=== PATIENT | male | born 1995 | race American Indian/Alaskan Native ===

== ENCOUNTER 2018-08-22 13:37 | Emergency (ER) | payer MEDICAID, OTHER, SELFPAY ==
--- NOTE | 2018-08-22 13:46 | Emergency Department Report ---
Blank Doc - Documentation Documentation: 23-year-old male that presents with right leg cellulitis. Started x5 days ago. Denies any injuries. Stated his school today give him a shot but does not know what shot it was. Right lateral proximal leg cellulitis and left ankle area. Positive induration and flutance to right leg area. Sent to [facility] for further evaluation and treatment with possible I/D.
[2018-08-22 14:37] LABS: Hematocrit 44.2 % (35.5-45.6); Mean Corpuscular HGB Conc 34 % (32-34); Mean Corpuscular Volume 93 fl (84-94); Platelet Count 175 K/mm3 (140-440); Red Blood Count 4.74 M/mm3 (3.65-5.03); Red Cell Distribution Width 12.6 % (13.2-15.2)
[2018-08-22 14:56] LABS: BUN/Creatinine Ratio 8; Blood Urea Nitrogen 11 mg/dL (9-20); Calcium 9.2 mg/dL (8.4-10.2); Hemolysis Index 27
[2018-08-22] MEDS ORDERED: XYLOCAINE 1% MPF 5 mL INFILTRATI ONE (15:44)
[2018-08-22] MEDS ORDERED: ROCEPHIN IM ONE (15:44)
[2018-08-22] MEDS ORDERED: NORCO 5/325 PO ONE (15:44)
--- NOTE | 2018-08-22 15:46 | Emergency Department Report ---
[facility] Chief Complaint: Extremity Injury, Lower Stated Complaint: CELLULITIS Time Seen by Provider: 08/22/18 13:47 Duration: 5 Days Location: Lower Extremity Severity: Mild History: Yes Pain, Yes Purulent Drainage, No Fever, No Numbness, No Foreign Body, No Previous History, No Insect Bite Allergies/Adverse Reactions: Allergies Allergy/AdvReac Type Severity Reaction Status Date / Time No Known Allergies Allergy Verified 08/22/18 13:39 ED Review of Systems ROS: Stated complaint: CELLULITIS Other details as noted in HPI ED Past Medical Hx - Social History Smoking Status: Never Smoker Substance Use Type: None ED Abscess Boil Physical Exam - Exam General: Vital signs noted. No distress. Alert and acting appropriately. ED Course Vital Signs 08/22/18 13:41 Temperature 98.6 F Pulse Rate 123 H Respiratory 18 Rate Blood Pressure 131/86 O2 Sat by Pulse 99 Oximetry Critical care attestation.: If time is entered above; I have spent that time in minutes in the direct care of this critically ill patient, excluding procedure time. ED Medical Decision Making - Lab Data Result diagrams: 08/22/18 14:22 08/22/18 14:22 ED Disposition Clinical Impression: Abscess, Cellulitis Disposition: DC-01 TO HOME OR SELFCARE Is pt being admited?: No Does the pt Need Aspirin: No Condition: Stable Instructions: Abscess (ED) Referrals: LAUREL DIETRICH DO [Primary Care Provider] - 3-5 Days Time of Disposition: 15:44
--- NOTE | 2018-08-22 15:48 | Emergency Department Report ---
<LEAH RIVAS - Last Filed: 08/22/18 15:46> ED Extremity Problem HPI - General Chief complaint: Extremity Injury, Lower Stated complaint: CELLULITIS Time Seen by Provider: 08/22/18 13:47 Source: patient, family Mode of arrival: Ambulatory Limitations: No Limitations - History of Present Illness Initial comments: The patient is a 23-year-old -[place] male who is presenting with swelling to the right lateral lower leg. Patient states that this swelling started out as a small pimple however it is grown in size to approximate size of a softball. Patient saw the [facility] and then was sent to a urgent care wassent him here stated he needed to have IV antibiotics. Patient denies any fever nausea vomiting. Patient states the pain is 6 out of 10 in severity and is concentrated just at the area of swelling. Severity scale (0 -10): 10 - Related Data Previous Rx's Medication Instructions Recorded Last Taken Type Clindamycin [Clindamycin CAP] 300 mg PO Q8H #30 cap 08/22/18 Unknown Rx traMADol [Ultram] 50 mg PO Q6HR PRN #10 tablet 08/22/18 Unknown Rx Allergies Allergy/AdvReac Type Severity Reaction Status Date / Time No Known Allergies Allergy Verified 08/22/18 13:39 ED Review of Systems Comment: All other systems reviewed and negative ED Past Medical Hx - Social History Smoking Status: Never Smoker Substance Use Type: None - Medications Home Medications: Home Medications Medication Instructions Recorded Confirmed Last Taken Type Clindamycin [Clindamycin CAP] 300 mg PO Q8H #30 cap 08/22/18 Unknown Rx traMADol [Ultram] 50 mg PO Q6HR PRN #10 tablet 08/22/18 Unknown Rx ED Physical Exam - General Limitations: No Limitations General appearance: alert, in no apparent distress - Head Head exam: Present: atraumatic, normocephalic - Eye Eye exam: Present: normal appearance - ENT ENT exam: Present: mucous membranes moist - Neck Neck exam: Present: normal inspection - Respiratory Respiratory exam: Present: normal lung sounds bilaterally. Absent: respiratory distress, wheezes, rales, rhonchi - Cardiovascular Cardiovascular Exam: Present: regular rate, normal rhythm. Absent: systolic murmur, diastolic murmur, rubs, gallop - GI/Abdominal GI/Abdominal exam: Present: soft, normal bowel sounds. Absent: distended, tenderness - Rectal Rectal exam: Present: deferred - Extremities Exam Extremities exam: Present: normal inspection, tenderness (patient has a approximately softball sized area of his erythema and induration with some central fluctuance on the lateral calf on the right lower extremity.) - Back Exam Back exam: Present: normal inspection - Neurological Exam Neurological exam: Present: alert, oriented X3 - Psychiatric Psychiatric exam: Present: normal affect, normal mood - Skin Skin exam: Present: warm, dry, intact, normal color. Absent: rash ED Course - Reevaluation(s) Reevaluation #1: 08/22/18 15:47 Patient was placed in a treatment room for I&D. Patient be started on clindamycin. ED Medical Decision Making - Lab Data Result diagrams: 08/22/18 14:22 08/22/18 14:22 ED Disposition Clinical Impression: Abscess, Cellulitis Disposition: DC-01 TO HOME OR SELFCARE Condition: Stable Instructions: Abscess (ED) Additional Instructions: FOLLOW UP WITH PCP NEXT WEEK FOR RECHECK SEE BELOW FOR REFERRAL MOTRIN OR TYLENOL FOR MILD PAIN ULTRAM FOR SEVERE PAIN DO NOT DRIVE WHILE TAKING MED ORDERED TODAY DIET AND ACTIVITY TOLERATED EPSOM SALT SOAKS WE DISCUSSED Referrals: LAUREL DIETRICH DO [Primary Care Provider] - 3-5 Days <FIDENCIO MCDOWELL - Last Filed: 08/22/18 16:10> ED Review of Systems ROS: Stated complaint: CELLULITIS Other details as noted in HPI ED Past Medical Hx - Past Medical History Previous Medical History?: No ED Course Vital Signs 08/22/18 13:41 Temperature 98.6 F Pulse Rate 123 H Respiratory 18 Rate Blood Pressure 131/86 O2 Sat by Pulse 99 Oximetry - I & D RLE Type of Procedure: Simple Blade Size: 11 I & D Procedure: betadine prep, sterile drapes applied, sterile dressing applied Progress: LIDO 2%, 3 ML TO ANESTHETIZE AREA CLEANED AND OPENED WITH BLADE MIN AMOUNT OF PURULENT DRAINAGE AREA IS CELLULITIC MORE THAN ABSCESSED; PT STATES IT HAD BEEN OPEN AND ALREADY EXPRESSED DRAINAGE; THIS EXPLAINS THE SPACE NOTED ON EXAM THAT WAS SUGGESTIVE OF ABSCESS PURULENCE PACKING PLACED DRESSING APPLIED HOME CARE INSTRUCTIONS GIVEN PT TOLERATED WELL ED Medical Decision Making - Lab Data Result diagrams: 08/22/18 14:22 08/22/18 14:22 - Medical Decision Making I/D TO [facility] DC HOME WITH DC PLAN OF CARE Labs 08/22/18 08/22/18 14:22 14:22 WBC 10.0 RBC 4.74 Hgb 15.0 Hct 44.2 MCV 93 MCH 32 MCHC 34 RDW 12.6 L Plt Count 175 Sodium 139 Potassium 4.1 Chloride 100.1 Carbon Dioxide 28 Anion Gap 15 BUN 11 Creatinine 1.3 Estimated GFR > 60 BUN/Creatinine Ratio 8 Glucose 126 H Calcium 9.2 - Differential Diagnosis SIMPLE ABSCESS Critical care attestation.: If time is entered above; I have spent that time in minutes in the direct care of this critically ill patient, excluding procedure time. ED Disposition Is pt being admited?: No Does the pt Need Aspirin: No Time of Disposition: 16:08
[2018-08-22] MEDS ORDERED: CLEOCIN 300 MG/50 mL 300 MG/50 ML BAG IV ONE (16:47)
[2018-08-22 16:54] VITALS: BP 107/56
== END 2018-08-22 17:01 | disposition home or self-care (01) ==
LOC: ED 13:37
DX: L02.415 Cutaneous abscess of right lower limb (principal); L03.115 Cellulitis of right lower limb
CPT/HCPCS: 36415; 80048; 85027; 96365